=== PATIENT | male | born 1935 | race Caucasian/White ===

== ENCOUNTER 2016-05-24 10:03 | Outpatient (CLI) | payer MEDICARE, BC ==
[2012-01-01 14:10] VITALS: O2SAT 95
== END 2016-05-24 10:04 | disposition home or self-care (01) | DRG 536 ==
LOC: CONVCARE 10:03
PROVIDERS: ATTEND Orthopaedic Surgery
DX: S72.111A Displaced fracture of greater trochanter of right femur, initial encounter for closed fracture (principal); T84.050A Periprosthetic osteolysis of internal prosthetic right hip joint, initial encounter; W00.0XXA Fall on same level due to ice and snow, initial encounter; Y79.2 Prosthetic and other implants, materials and accessory orthopedic devices associated with adverse incidents; Z96.641 Presence of right artificial hip joint
CPT/HCPCS: 73502; 73700

== ENCOUNTER 2016-07-12 12:30 | Outpatient (CLI) | payer MEDICARE, BC ==
[2012-01-01 14:10] VITALS: O2SAT 95
== END 2016-07-12 12:31 | disposition home or self-care (01) | DRG 561 ==
LOC: CONVCARE 12:30
PROVIDERS: ATTEND Orthopaedic Surgery
DX: M84.451D Pathological fracture, right femur, subsequent encounter for fracture with routine healing (principal); Z96.641 Presence of right artificial hip joint; T84.050 Periprosthetic osteolysis of internal prosthetic right hip joint
CPT/HCPCS: 73502

== ENCOUNTER 2016-09-13 11:08 | Outpatient (CLI) | payer MEDICARE, BC ==
[2012-01-01 14:10] VITALS: O2SAT 95
== END 2016-09-13 11:09 | disposition home or self-care (01) | DRG 561 ==
LOC: CONVCARE 11:08
PROVIDERS: ATTEND Orthopaedic Surgery
DX: Z47.1 Aftercare following joint replacement surgery (principal); Z96.642 Presence of left artificial hip joint
CPT/HCPCS: 72170; 73501; 73610

== ENCOUNTER 2016-10-25 08:00 | Outpatient (CLI) | payer MEDICARE, BC ==
[2012-01-01 14:10] VITALS: O2SAT 95
== END 2016-10-25 08:01 | disposition home or self-care (01) | DRG 561 ==
LOC: CONVCARE 08:00
PROVIDERS: ATTEND Orthopaedic Surgery
DX: Z47.1 Aftercare following joint replacement surgery (principal); M24.851 Other specific joint derangements of right hip, not elsewhere classified; Z96.641 Presence of right artificial hip joint; S72.111D Displaced fracture of greater trochanter of right femur, subsequent encounter for closed fracture with routine healing
CPT/HCPCS: 73502

== ENCOUNTER 2017-11-02 16:25 | Emergency (ER) | payer MEDICARE, BC ==
[2017-11-02 16:48] VITALS: TEMP 99.2
[2017-11-02] MEDS ORDERED: ONDANSETRON HCL 4 MG/2 ML SOL IV ONE (16:57)
[2017-11-02] MEDS ORDERED: PROCHLORPERAZINE EDISYLATE 5 MG/ML SOL ONE (16:58)
[2017-11-02] MEDS ORDERED: SODIUM CHLORIDE 0.9% FLUSH 10 ML SOL IV PRN (17:00)
[2017-11-02] MEDS ORDERED: PROCHLORPERAZINE EDISYLATE 5 MG/ML SOL IV ONE (17:00)
[2017-11-02] MEDS ORDERED: SODIUM CHLORIDE 0.9% 500 ML 500 ML IV ONE (17:59)
[2017-11-02 18:04] LABS: APPEARANCE,URINE Clear; BILIRUBIN,URINE NEGATIVE (NEGATIVE); COLOR,URINE Dark yellow; GLUCOSE, URINE (UA) NEGATIVE (NEGATIVE); KETONES,URINE NEGATIVE (NEGATIVE); LEUKOCYTE ESTERASE ,URINE NEGATIVE (NEGATIVE); NITRATE,URINE NEGATIVE (NEGATIVE); OCCULT BLOOD,URINE NEGATIVE (NEG-TRACE); UROBILINOGEN,URINE 0.2 (0.2-1.0 EU)
[2017-11-02 18:06] LABS: AST 18 IU/L (15-37); BILIRUBIN,TOTAL 0.8 mg/dl (0.2-1.0); BLOOD UREA NITROGEN 23 mg/dl (7-18); CALCIUM 8.5 mg/dl (8.5-10.1); CARBON DIOXIDE 27.8 mEq/L (21-32); CHLORIDE 111 mMol/L (98-107); CREATININE 1.32 mg/dl (0.80-1.30); GLOM FILT RATE 52 mL/min (>60); GLUCOSE 120 mg/dl (74-106); POTASSIUM 3.7 mMol/L (3.5-5.1); SODIUM 149 mMol/L (136-145)
[2017-11-02 18:07] LABS: ALBUMIN 3.8 gm/dl (3.4-5.0); ALKALINE PHOSPHATASE 56 IU/L (46-116); ALT 25 IU/L (14-63); TOTAL PROTEIN 6.5 gm/dl (6.4-8.2); TROP I < 0.017 ng/ml (0.000-0.056)
[2017-11-02 18:09] LABS: HEMATOCRIT 43 % (39-53); MEAN CORPUSCULAR HEMOGLOBIN 31.3 pg (27.0-32.0); MEAN CORPUSCULAR VOLUME 90 fL (80-100)
[2017-11-02 18:10] LABS: BASOPHILS % (AUTO) 2 % (0-3); EOSINOPHILS % (AUTO) 1 % (0-9); LYMPHOCYTES % (AUTO) 21.6 % (10-50); MONOCYTES % (AUTO) 5.4 % (0-12); NEUTROPHILS % (AUTO) 70.9 % (37-80)
[2017-11-02 18:21] LABS: BACTERIA 1+ (< 1+); CRYSTALS NEGATIVE (0-3 AVE/HPF); EPITHELIAL CELLS NEGATIVE (SQUAMOUS); RBC,URINE NEGATIVE (0-3AV/HPF); WBC,URINE 0-2 (0-5AV/HPF)
[2017-11-02 19:53] LABS: ABG PH 7.42 (7.35-7.45)
[2017-11-02 21:34] VITALS: BP 145/85; PULSE 64; RESP 23; O2SAT 98
== END 2017-11-02 21:35 | disposition short-term general hospital (02) | DRG 923 ==
LOC: ED 16:25 → UNDOADMOB 20:48 → ACUTE CARE 20:48 → UNDODISOB 11-03 00:05
DX: T75.89XA Other specified effects of external causes, initial encounter (principal); R42 Dizziness and giddiness
CPT/HCPCS: 36415; 36600; 70450; 80053; 81001; 82803; 84484; 85025; 93005; 96365; 96374; 99284; 99285; J0780